=== PATIENT | male | born 1955 | race Caucasian/White ===

== ENCOUNTER → 2017-12-17 | Outpatient (CLI) | payer BC, OTHER ==
[~2017-12-17] VITALS: Ht 170.2 cm; Wt 78.0 kg
[~2017-12-17] MED LIST: ASPIR 8181 MG PO; BYSTOLIC 5 MG5 M1 PO; CYCLOBENZAPRINE5 MG PO; IBUPROFEN 800800 MG PO; LIPITOR 20 MG T20 M1 PO; LIPITOR40 MG PO; PRINIVIL20 MG PO; ULTRAM 50MG TAB50 MG PO
--- NOTE | ~2017-12-17 | CATHLAB ---
[facility] [address] [place] [address] INVASIVE PROCEDURE REPORT Name: YONY SANTOS Room #: REG GWEN Ortiz#: [id number] Admission: 12/17/17 Attend Phys: Gregory Chavez, Discharge: Date of : 53 Date of Service: 12/17/17 1744 Report #: [id number] THIS REPORT FOR: //name// APPROVED REPORT Study performed: 12/17/2017 07:42:13 Patient Details Patient Status: Out-Patient Room #: The patient is a 62 year-old male Event Personnel Gregory Chavez Senior Cobol Developer, Demarcus Gabriel RN, Juanita Chavarria RTR, TERRA Osborne, Jesus Moncada Monitor Procedures Performed Left Heart Cath w/or w/o Coronaries [id number] [facility] [place] Renal Bilateral Peripheral Angiography [id number] CVRENALBIL Indication Abnormal ECG Procedure Narrative The Right Groin^ was infiltrated with 1% Lidocaine subcutaneous anesthesia. A PINNACLE 6FR Sheath #[id number] sheath was inserted into the RFA^. Coronary angiography was performed using coronary diagnostic catheters. The right coronary system was accessed and visualized with a JR4 catheter. The left coronary system was accessed and visualized with a JL4 catheter. The left ventricle was accessed and visualized with a PIGTAIL catheter. Left ventricular/Aortic Valve gradient assessed . Left ventriculogram was performed in 30 degree projection. An aortogram of the abdominal aorta was performed. Closure device was deployed with a 6 Fr MYNXGRIP 6/7F #[id number]. The patient tolerated the procedure well and there were no complications associated with the procedure. There was no hematoma. Intraoperative Conscious Sedation Sedation start time: 8.25 Case end Time: 8.41 Fentanyl 50 mcg Versed 1.5 mg Fluoro Time: 3.10 minutes Contrast Type and Amount: Omnipaque 135 ml Hemodynamics [facility] [place] [address] INVASIVE PROCEDURE REPORT Name: YONY SANTOS Room #: LETICIA Ortiz#: [id number] Admission: 12/17/17 Attend Phys: Gregory Chavez, Discharge: Date of : 53 Date of Service: 12/17/17 1744 Report #: [id number] The aortic pressure is 105/39 mmHg with a mean of 65 mmHg. The left ventricular pressure is 115/14 mmHg with a mean of mmHg. The left ventricular end diastolic pressure is 29 mmHg. Conclusion #1 normal left ventricular size and systolic function EF 60% #2 abdominal aortogram a small infrarenal aortic aneurysm with mildly disease iliac system brisk flow #3 long left main with at least a 70-80% proximal mid vessel lesion with significant catheter dampening giving rise to LAD and circumflex #4 LAD is occluded proximally after diagonal takeoff it is filled via left to left collateral filling #5 circumflex OM is nondominant with mild disease #6 dominant right coronary previously placed proximal stent widely patent eccentric 40% lesion distal to that stent giving rise to a PDA widely patent #7 selective renal angiography single bilateral renal arteries with mild ostial plaquing no occlusive disease Recommendations and plan continue aggressive risk factor modification addition of beta [place]. Patient will have CV surgical consultation in the a.m. He has not had rest pain The revascularization by bypass with the significant left main lesion and occluded LAD preserved LV function and good distal targets. <ELECTRONICALLY SIGNED> By: Gregory Chavez MD, FACC 12/17/17 1744 [id number] Gregory Chavez MD, FACC /INF
--- NOTE | ~2017-12-17 | EKG ---
[address] [place] [address] ELECTROCARDIOGRAM REPORT Name: YONY SANTOS [facility] [id number] Admission: 12/17/17 Attend Phys: Gregory Chavez MD, Discharge: Date of : 53 Report #: [id number] THIS REPORT FOR: //name// [facility] Test Date: 2017-12-17 Test Time: 07:52:05 Pat Name: YONY SANTOS Department: Room: Gender: Finisher Special Stocks: Britany GANT : 1955 Requested By: Gregory Chavez Order Number: [id number] MD: Solo Condon Measurements Intervals [place] Rate: 68 P: 10 SD: 153 QRS: 66 QRSD: 96 T: 44 QT: 420 QTc: 447 Interpretive Statements Sinus rhythm Normal tracing Compared to ECG 08/19/2005 07:06:40 Criteria for inferior infarct no longer present Electronically Signed On 12-17-2017 8:24:50 CDT by Solo Condon [email or web address] <ELECTRONICALLY SIGNED> By: Solo Condon MD, [facility] 12/17/17 [id number] Solo Condon MD, FAC /EPI
[2017-12-17 07:36] VITALS: BP 114/77
[2017-12-17 07:51] LABS: HEMATOCRIT 42.6 % (42.0-52.0); HEMOGLOBIN 14.8 gm/dL (14.0-18.0); MCH 31.3 pg (26.0-34.0); MCHC 34.8 g/dL (28.0-37.0); RBC 4.73 mil/uL (4.50-6.00); RDW 12.9 % (10.5-14.5); WBC 7.6 thou/uL (4.0-11.0)
[2017-12-17 07:59] LABS: CALCIUM 8.6 mg/dL (8.5-10.1); CREATININE 1.1 mg/dL (0.7-1.3); POTASSIUM 3.7 mmol/L (3.5-5.1)
== END | disposition home or self-care (01) ==
LOC: CATH 07:07
PROVIDERS: Internal Medicine Cardiovascular Disease
DX: I25.10 Atherosclerotic heart disease of native coronary artery without angina pectoris (principal); I70.1 Atherosclerosis of renal artery; I10 Essential (primary) hypertension; Z95.5 Presence of coronary angioplasty implant and graft; J42 Unspecified chronic bronchitis; Z82.49 Family history of ischemic heart disease and other diseases of the circulatory system; I21.3 ST elevation (STEMI) myocardial infarction of unspecified site; F17.210 Nicotine dependence, cigarettes, uncomplicated

== ENCOUNTER → 2020-11-24 | Outpatient (CLI) | payer OTHER | LOC: SJCVC 15:54 | PROVIDERS: ATTEND Internal Medicine Cardiovascular Disease | DX: I45.10 Unspecified right bundle-branch block (principal); I25.10 Atherosclerotic heart disease of native coronary artery without angina pectoris; E78.00 Pure hypercholesterolemia, unspecified; I10 Essential (primary) hypertension; I25.5 Ischemic cardiomyopathy; Z95.1 Presence of aortocoronary bypass graft; Z87.891 Personal history of nicotine dependence; Z72.89 Other problems related to lifestyle; Z79.899 Other long term (current) drug therapy ==

== ENCOUNTER → 2020-12-01 | Outpatient (CLI) | payer OTHER | LOC: SJCVCIMAG 14:05 | PROVIDERS: ATTEND Internal Medicine Cardiovascular Disease | DX: I25.10 Atherosclerotic heart disease of native coronary artery without angina pectoris (principal); I10 Essential (primary) hypertension; E78.5 Hyperlipidemia, unspecified ==